=== PATIENT | female | born 1965 | race Two or more races ===

== ENCOUNTER 2022-12-26 06:55 | Day surgery (SDC) | payer OTHER ==
[~2022-12-26 06:55] MED LIST: ATORVASTATIN CA10 MG PO; COZAAR50 MG PO; D3-501250 MCG PO; NAPR500T14 PO
== END 2022-12-26 21:00 | disposition home or self-care (01) ==
LOC: CIR.AMB 06:55
PROVIDERS: ATTEND Colon & Rectal Surgery
DX: K64.8 Other hemorrhoids (principal); K64.4 Residual hemorrhoidal skin tags; K64.2 Third degree hemorrhoids; Z20.822 Contact with and (suspected) exposure to COVID-19